=== PATIENT | male | born 1980 | race Caucasian/White ===

== ENCOUNTER 2021-06-15 17:29 | Emergency (ER) | payer MEDICAID ==
[~2021-06-15] VITALS: Ht 170.2 cm; Wt 81.6 kg
[2021-06-15 17:46] VITALS: BP_SYST 126
--- NOTE | 2021-06-15 17:50 | NUR ---
Patient to ER bed 08 to gown for evaluation. Side rails up.
--- NOTE | 2021-06-15 17:55 | NUR ---
Pt AAO and ambulatory reporting left head and face pain 7/10 on pain scale. Pt is describing shingle like s/s without a rash. Pt reports that s/s have lasted X 7 days.
--- NOTE | 2021-06-15 17:57 | NUR ---
Dr Marte evaluating patient at bedside
--- NOTE | 2021-06-15 18:09 | NUR ---
Pt back from CT scan.
[2021-06-15] MEDS ORDERED: KETOROLAC TROMETHAMINE 60 MG/2 ML VIAL IM ONE (18:30)
[2021-06-15] MEDS ORDERED: TRAM50TA2 PO (18:43)
[2021-06-15] MEDS ORDERED: IBUP-1969 PO (18:43)
--- NOTE | 2021-06-15 18:59 | NUR ---
Report given to GRACIE Meadows who will assume care.
[2021-06-15 19:58] VITALS: BP_SYST 126
--- NOTE | 2021-06-15 19:59 | NUR ---
Patient given written and verbal discharge instructions and verbalizes understanding. DR. YANETH CHRISTIANSON MD discussed with patient the results and treatment provided. Patient in stable condition. ID arm band removed. Rx of IBUPROFEN, TRAMADOL given. Patient educated on pain management and to follow up with PMD. Pain Scale 0/10. Opportunity for questions provided and answered. Medication side effect fact sheet provided.
== END 2021-06-15 19:59 | disposition home or self-care (01) ==
LOC: SED 17:29
DX: R51.9 Headache, unspecified (principal); I10 Essential (primary) hypertension; Z79.899 Other long term (current) drug therapy
CPT/HCPCS: 70450; 76376; 96372; 99284; J1885